=== PATIENT | female | born 1985 | race American Indian/Alaskan Native ===

== ENCOUNTER 2020-09-23 00:05 | Inpatient (IN) | payer OTHER ==
[~2020-09-23] VITALS: Ht 167.6 cm; Wt 109.3 kg
[~2020-09-23 00:05] MED LIST: EXPECTA PRENAT1 EACH PO
--- NOTE | 2020-09-23 00:14 | NUR ---
[facility] RAPID COVID TEST DONE PER ORDER. COVID TEST COLLECTED FROM BOTH NARES W/O ISSUE. PT TOLERATED WELL.
--- NOTE | 2020-09-23 11:45 | PR ---
[facility] [address] [facility] [place] [address] Signed Progress Notes IP Datetime Report Generated by CPN: 09/23/2020 11:45 PROGRESS NOTES: [id number] Impression: Normal Progression of Labor Procedures: Artificial ROM Plan: Continue Present Management; Anticipate Vaginal Delivery VITAL SIGNS: [id number] Vital Signs: Reviewed; Within Normal Limits EXAM: [id number] Dilatation: 5.0 Effacement: 75 Station: -3 Contractions: rare MEMBRANES: [id number] Membranes Status: Ruptured Comments: Comfortable with Epidural. FETUS A: [id number] FHR Baseline: 130 Variability: Moderate 6-25bpm Accelerations: 15X15 FETUS B: [id number] Signing Physician: Olvin Zhou MD Copies: ~ *Electronically Signed* 09/23/20 1145 OLVIN ZHOU MD PATIENT NAME: JORDIN MACEDO PROGRESS NOTE DATE OF : 87 PHYSICIAN: OLVIN ZHOU MD RPT #: [id number] REPORT IS CONFIDENTIAL AND NOT TO BE RELEASED WITHOUT AUTHORIZATION
--- NOTE | 2020-09-23 15:52 | PR ---
[facility] [address] [facility] [place], [place] [address] Signed Progress Notes IP Datetime Report Generated by CPN: 09/23/2020 15:52 PROGRESS NOTES: [id number] Impression: Normal Progression of Labor Other Impressions: Slow Progress Procedures: Intrauterine Pressure Catheter; Scalp Electrode Plan: Continue Present Management; Anticipate Vaginal Delivery Other Plans: May need Pitocin Augmentation soon VITAL SIGNS: [id number] Vital Signs: Reviewed; Within Normal Limits EXAM: [id number] Dilatation: 5.0 Effacement: 80 Station: -3 Contractions: rare MEMBRANES: [id number] Membranes Status: Ruptured Comments: Patient comfortable with Epidural, not feeling contractions and not showing up well. IUPC and FEKG applied. Will start Pitocin, if contractions not adequate. FETUS A: [id number] FHR Baseline: 130 Variability: Moderate 6-25bpm Accelerations: 15X15 FETUS B: [id number] Signing Physician: Olvin Zhou MD Copies: ~ *Electronically Signed* 09/23/20 1552 OLVIN ZHOU MD PATIENT NAME: JORDIN MACEDO PROGRESS NOTE DATE OF : 87 PHYSICIAN: OLVIN ZHOU MD RPT #: [id number] REPORT IS CONFIDENTIAL AND NOT TO BE RELEASED WITHOUT AUTHORIZATION
--- NOTE | 2020-09-23 16:15 | PR ---
[facility] [address] [facility] [place], [place] [address] Signed Progress Notes IP Datetime Report Generated by CPN: 09/23/2020 16:15 PROGRESS NOTES: [id number] Impression: Normal Progression of Labor Other Impressions: Slow Progress Procedures: Intrauterine Pressure Catheter; Scalp Electrode Plan: Augmentation Other Plans: May need Pitocin Augmentation soon VITAL SIGNS: [id number] Vital Signs: Reviewed; Within Normal Limits EXAM: [id number] Dilatation: 5.0 Effacement: 80 Station: -3 Contractions: rare MEMBRANES: [id number] Membranes Status: Ruptured Comments: Contractions seem spaced out and mild. Will start IV Pitocin Augmentation. FETUS A: [id number] FHR Baseline: 130 Variability: Moderate 6-25bpm Accelerations: 15X15 FETUS B: [id number] Signing Physician: Olvin Zhou MD Copies: ~ *Electronically Signed* 09/23/20 1615 OLVIN ZHOU MD PATIENT NAME: JORDIN MACEDO PROGRESS NOTE DATE OF : 87 PHYSICIAN: OLVIN ZHOU MD RPT #: [id number] REPORT IS CONFIDENTIAL AND NOT TO BE RELEASED WITHOUT AUTHORIZATION
--- NOTE | 2020-09-24 13:13 | PR ---
[facility] [address] [place] [address] [place] [address] Signed PP Progress Notes Datetime Report Generated by CPN: 09/24/2020 13:13 SUBJECTIVE: [id number] Pain: Within Normal Limits Nausea/Vomiting: Denies Bowel Movement: Yes Vital Signs: [id number] Vital Signs: Reviewed; Within Normal Limits Notable Details: PP Hgb/Hct = 9.1/27.8 Abdomen/Uterus: Normal Lochia: Normal Extremities: Normal IMPRESSION/PLAN/PROCEDURES: [id number] Impression: Normal Progression Plan: Continue Present Management Procedures: None Progress Notes: Doing well, without complaint. Up moving without trouble, eating well. Signing Physician: Olvin Zhou MD Copies: ~ *Electronically Signed* 09/24/20 1313 OLVIN ZHOU MD PATIENT NAME: JORDIN MACEDO PROGRESS NOTE DATE OF : 87 PHYSICIAN: OLVIN ZHOU MD RPT #: [id number] REPORT IS CONFIDENTIAL AND NOT TO BE RELEASED WITHOUT AUTHORIZATION
--- NOTE | 2020-09-25 11:40 | PR ---
[facility] [address] [facility] [place] [address] Signed PP Progress Notes Datetime Report Generated by CPN: 09/25/2020 11:40 SUBJECTIVE: [id number] Pain: Within Normal Limits Nausea/Vomiting: Denies Bowel Movement: Yes Vital Signs: [id number] Vital Signs: Reviewed; Within Normal Limits Notable Details: PP Hgb/Hct = 9.1/27.8 Abdomen/Uterus: Normal Lochia: Normal Extremities: Normal IMPRESSION/PLAN/PROCEDURES: [id number] Impression: Normal Progression Plan: Discharge Procedures: None Progress Notes: Doing well, without complalint, ready to go home. Signing Physician: Olvin Zhou MD Copies: ~ *Electronically Signed* 09/25/20 1140 OLVIN ZHOU MD PATIENT NAME: JORDIN MACEDO PROGRESS NOTE DATE OF : 87 PHYSICIAN: OLVIN ZHOU MD RPT #: [id number] REPORT IS CONFIDENTIAL AND NOT TO BE RELEASED WITHOUT AUTHORIZATION
== END 2020-09-25 12:30 | disposition home or self-care (01) | DRG 806 ==
LOC: FBC 00:05
PROVIDERS: ADMIT General Practice; ATTEND General Practice
PROC: 10E0XZZ Delivery of Products of Conception, External Approach (ICD-10-PCS; principal; 2020-09-23)
PROC: 0HQ9XZZ Repair Perineum Skin, External Approach (ICD-10-PCS; 2020-09-23)
PROC: 10907ZC Drainage of Amniotic Fluid, Therapeutic from Products of Conception, Via Natural or Artificial Opening (ICD-10-PCS; 2020-09-23)
PROC: 10H07YZ Insertion of Other Device into Products of Conception, Via Natural or Artificial Opening (ICD-10-PCS; 2020-09-23)
PROC: 3E0P7VZ Introduction of Hormone into Female Reproductive, Via Natural or Artificial Opening (ICD-10-PCS; 2020-09-23)
PROC: 00HU33Z Insertion of Infusion Device into Spinal Canal, Percutaneous Approach (ICD-10-PCS; 2020-09-23)
PROC: 3E0R3BZ Introduction of Anesthetic Agent into Spinal Canal, Percutaneous Approach (ICD-10-PCS; 2020-09-23)
DX: O48.0 Post-term pregnancy (principal); O99.324 Drug use complicating childbirth; Z37.0 Single live birth; Z3A.41 41 weeks gestation of pregnancy; Z20.822 Contact with and (suspected) exposure to COVID-19; O90.81 Anemia of the puerperium; D64.9 Anemia, unspecified; O70.0 First degree perineal laceration during delivery; F15.90 Other stimulant use, unspecified, uncomplicated; Z87.891 Personal history of nicotine dependence; Z86.19 Personal history of other infectious and parasitic diseases
CPT/HCPCS: 01960; 36415; 85027; A9270; C9803; J2001; J2590; J2795; J7121; U0003